=== PATIENT | female | born 1935 | race Caucasian/White ===

== ENCOUNTER 2017-04-27 07:09 | Day surgery (SDC) | payer MEDICARE, BC ==
[2017-04-27] MEDS ORDERED: DEXAMETHASONE PRESERVATIVE FREE 10MG/ML VIAL IV ONE (13:38)
[2017-04-27] MEDS ORDERED: BUPIVACAINE 0.5% W/EPI MPF 30 ML VIAL IVP ONE (13:38)
[2017-04-27] MEDS ORDERED: LIDOCAINE 1% W/EPI 1:200,000 MPF 30ML SQ ONE (13:38)
[2017-04-27] MEDS ORDERED: PROPOFOL 10 MG/ML VIAL IV ONE (14:00)
[2017-04-27] MEDS ORDERED: FENTANYL PF 100MCG/2ML VIAL IV ONE (14:00)
[2017-04-27] MEDS ORDERED: *PACU ONLY* KETAMINE HCL 10 MG/ML (20ML) VIAL IV ONE (14:00)
[2017-04-27] MEDS ORDERED: LIDOCAINE 2% MDV (20MG/ML) 20ML VIAL IV ONE (14:00)
--- NOTE | 2017-04-27 15:03 | Operative Note - Ferro ---
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 OPERATION: RADIOFREQUENCY RHIZOTOMY, BILATERAL LUMBAR FACETS 4-5 AND 5-1. SURGEON: CLIFF PEPE D.O. ANESTHESIA: LOCAL SEDATION. ANESTHESIA PROVIDER: ASHA CARRION CRNA. INDICATION: This patient presents with primary back pain. Examination shows tenderness of the lumbar spine. Range of motion does cause pain in the low back with extension. Diagnostics show a subluxation at L4-5 with diffuse disc abnormalities and multiple levels of spondylosis. A facet series 2-3 to 5-1 resulted in 75-90% pain control. Due to the failure of therapy and success of facet series, the patient presents for rhizotomy. Insurance guidelines for this patient limit her number of levels and bilateral technique to 4-5 and 5-1 only bilateral. PROCEDURE: Intravenous line, vital sign monitoring, IV sedation. Prepped and draped in sterile technique. Under imaging, facets at 4-5 and 5-1 were identified and marked bilaterally. Skin infiltrated. A 20-gauge rhizotomy cannula positioned. Stimulation trials conducted. Rhizotomy burn performed. Local with anti-inflammatory in the sites. Topical antibiotic and sterile dressing was applied. We will monitor and evaluate. cc: Consuelo Jaime JOB NUMBER: [id number] MTDD
== END 2017-04-27 09:45 | disposition home or self-care (01) ==
LOC: SUR 07:09
PROVIDERS: ATTEND Pain Medicine Interventional Pain Medicine
DX: M47.816 Spondylosis without myelopathy or radiculopathy, lumbar region (principal); J44.9 Chronic obstructive pulmonary disease, unspecified; I48.2 Chronic atrial fibrillation; Z79.01 Long term (current) use of anticoagulants; Z95.1 Presence of aortocoronary bypass graft; E78.00 Pure hypercholesterolemia, unspecified; I10 Essential (primary) hypertension
CPT/HCPCS: 64635; 64636; 01936; J1100; J3010

== ENCOUNTER 2017-07-30 11:50 | Emergency (ER) | payer MEDICARE, BC ==
[2017-07-30] MEDS ORDERED: IPRATROPIUM/ALBUTEROL (0.5MG/3MG) NEB INH ONE (12:06)
--- NOTE | 2017-07-30 12:06 | Emergency Department Record ---
History of Present Illness - General Chief Complaint: Shortness of breath Stated Complaint: TERRA Time Seen by Provider: 07/30/17 11:51 Source: Patient Mode of Arrival: Wheelchair Limitations: No limitations - History of Present Illness Initial Comments: 82 yo female presents to ED for evaluation of difficulty in breathing that began earlier this morning around 3:00. Patient denies recent illness, fevers, chills, or cough symptoms, but does report history of COPD and CHF. Patient denies wheezing symptoms. Patient also reports mild lower extremity edema symptoms. Patient denies any recent change in medications. MD Complaint: Shortness of breath Onset/Timin -: Hour(s) Severity: Moderate Consistency: Constant Improves With: Oxygen, Rest Worsens With: Exertion Known History Of: Congestive heart failure, COPD Associated Symptoms: Denies other symptoms - Related Data Home Oxygen Therapy: No Home Medications Medication Instructions Recorded Confirmed Last Taken B1/B2/Niacin/B12/Protease 1 each PO DAILY 07/30/17 07/30/17 07/29/17 [B-Complex with B-12 Tablet] Calcium Carbonate/Vitamin D3 1 each PO DAILY 07/30/17 07/30/17 07/29/17 [Calcium 600 + Vit D Tablet] Multivitamin [Multi-Vitamin Daily] 1 each PO DAILY 07/30/17 07/30/17 07/29/17 Multivitamin with Minerals [Hair, 1 each PO DAILY 07/30/17 07/30/17 07/29/17 Skin & Nails] Allergies Allergy/AdvReac Type Severity Reaction Status Date / Time hydralazine HCl Allergy Severe DIFFICULTY Verified 07/30/17 12:04 [From Apresoline] BREATHING Penicillins Allergy Severe SWELLING Verified 07/30/17 12:04 OF THE TONGUE aquagel bandages Allergy Severe BLISTERS Uncoded 08/25/16 11:28 metoprolol succinate AdvReac Unknown PT UNSURE Uncoded 08/25/16 11:28 OF REACTION Review of Systems Constitutional: Denies: Chills, Fever, Malaise, Night sweats Eyes: Denies: Eye discharge, Eye pain ENT: Denies: Congestion, Ear pain, Epistaxis Respiratory: Reports: Dyspnea. Denies: Cough Cardiovascular: Reports: Dyspnea on exertion, Edema. Denies: Chest pain Endocrine: Denies: Fatigue, Heat or cold intolerance Gastrointestinal: Denies: Abdominal pain, Nausea, Vomiting Genitourinary: Denies: Incontinence, Retention Musculoskeletal: Denies: Arthralgia, Back pain, Gout, Joint swelling Skin: Denies: Bruising, Change in color Neurological: Denies: Abnormal gait, Confusion, Headache, Seizure Psychiatric: Denies: Anxiety Hematological/Lymphatic: Denies: Anemia, Blood Clots Past Medical History - SOCIAL HISTORY Smoking Status: Former smoker - RESPIRATORY Hx Respiratory Disorders: Yes Hx COPD: Yes (mild emphysema) - CARDIOVASCULAR Hx Cardio Disorders: Yes Hx Abnormal EKG: Yes Hx Cardiac Cath: Yes Hx Chest Pain: Yes (none recently) Hx CHF: Yes Hx Edema: Yes (left leg-non pitting) Hx Hypertension: Yes (meds good control) Hx Irregular Heartbeat: Yes (AFIB) Hx Vascular Disease: Yes (has brain aneurysm-Dr monitoring it) Hx Coronary Artery Bypass Graft: Yes Comment:: history bypass; see cardiology yearly D'Haem, hyperlipidemia - NEURO Hx Neuro Disorders: Yes Hx Dizziness: Yes (only lightheadedness) Hx TIA: Yes (times 4) Hx of Neuromuscular Disease: Yes (on Lyrica for fibromyalgia) Comment:: balance issues; uses walker; or cane - GI Hx GI Disorders: No - Hx Genitourinary Disorders: Yes Hx Bladder Problem: Yes (sometimes leakages-wears pad) - ENDOCRINE Hx Endocrine Disorders: No Hx Diabetes: No Hx Thyroid Disease: No - MUSCULOSKELETAL Hx Musculoskeletal Disorders: Yes Hx Arthritis: Yes Hx Fibromyalgia: Yes - PSYCH Hx Psych Problems: Yes Hx Anxiety: Yes Hx Depression: Yes - HEMATOLOGY/ONCOLOGY Hx Hematology/Oncology Disorders: Yes Hx Clotting Problems: Yes (on Eliquis for A-fib) Family Medical History Hx Heart Disease: Father, Mother, Brother/Sister Hx HTN: Father, Brother/Sister Physical Exam - General General Appearance: Alert, Oriented x3, Cooperative, Moderate distress Limitations: No limitations - Head Head exam: Atraumatic, Normocephalic, Normal inspection Head exam detail: negative: Abrasion, Contusion, Milian's sign, General tenderness, Hematoma, Laceration - Eye Eye exam: Normal appearance. negative: Conjunctival injection, Periorbital swelling, Periorbital tenderness, Scleral icterus - ENT Ear exam: negative: Auricular hematoma, Auricular trauma Nasal Exam: negative: Active bleeding, Discharge, Dried blood, Foreign body Mouth exam: negative: Drooling, Laceration, Muffled voice, Tongue elevation - Neck Neck exam: Normal inspection. negative: Meningismus, Tenderness - Respiratory Respiratory exam: Decreased breath sounds, Respiratory distress. negative: Rhonchi, Stridor - Cardiovascular Cardiovascular Exam: Regular rate, Normal rhythm, Normal heart sounds - GI/Abdominal GI/Abdominal exam: Soft. negative: Rebound, Rigid, Tenderness - Rectal Rectal exam: Deferred - exam: Deferred - Extremities Extremities exam: Pedal edema (trace edema bilaterally). negative: Calf tenderness - Back Back exam: Denies: CVA tenderness (R), CVA tenderness (L) - Neurological Neurological exam: Alert, Normal gait, Oriented X3 - Psychiatric Psychiatric exam: Normal affect, Normal mood - Skin Skin exam: Normal color. negative: Abrasion Type of lesion: negative: abrasion Course - Reevaluation(s) Reevaluation #1: 07/30/17 12:05 EKG: NSR 65 LAD, IVCD No acute ST-T wave changes are present Reevaluation #2: 07/30/17 12:52 Labs reviewed, BNP 5867 (previous 341). Labs are otherwise grossly unremarkable for an acute process. CXR: Chronic changes, nothing acute. Patient now 94% on 2 L NC, will initiate transfer to [facility] for further evaluation. Reevaluation #3: 07/30/17 13:17 Case was discussed with Dr. Conklin, will accept patient for transfer. Medical Decision Making - Lab Data Result diagrams: 07/30/17 12:08 07/30/17 12:08 Disposition Disposition: Transfer Clinical Impression: Hypoxia Acute exacerbation of CHF (congestive heart failure) Qualifiers: Congestive heart failure type: unspecified congestive heart failure type Qualified Code(s): I50.9 - Heart failure, unspecified Disposition: Acute Care Hospital Transfer Transfer To: [facility] Reason For Transfer: CHF exacerbation Accepting Physician: Katerin Time Discussed w/Accepting Physician: 13:00 Condition: (2) Stable Forms: Patient Portal Access Time of Disposition: 13:01 Quality - Quality Measures Quality Measures: N/A - Blood Pressure Screening Does Patient Have Any of the Following: Active Dx of HTN Blood Pressure Classification: Pre-Hypertensive BP Reading Systolic Measurement: 128 Diastolic Measurement: 85 Screening for High Blood Pressure: Patient Exclusion, Hx of HTN [[id number]]
[2017-07-30 12:13] LABS: BASO % 0.2 % (0-6); EOS % 4.8 % (0-6); GRAN % 71.7 % (47-80); HEMATOCRIT 41.5 % (35.0-47.0); HEMOGLOBIN 13.3 gm/dl (11.6-16.0); LYMPH % 16.2 % (16-45); MEAN CELL VOLUME 93.9 fl (81-97); MEAN CORPUSCULAR HEMOGLOBIN 30.1 pg (27-33); MEAN PLATELET VOLUME 9.8 fl (7.4-10.4); MONO % 7.1 % (0-9); PLATELET COUNT 217 K/uL (130-400); RED BLOOD COUNT 4.42 M/uL (3.80-5.40); RED CELL DISTRIBUTION WIDTH 13.8 % (11.5-14.5); WHITE BLOOD COUNT W/O DIFF 8.2 K/uL (4.2-12.2)
[2017-07-30 12:43] LABS: ALB/GLOB RATIO 1.1 (1.1-1.8); ALBUMIN 3.6 g/dL (4.0-5.0); ALKALINE PHOSPHATASE 77 U/L (35-104); ALT/SGPT 9 U/L (<33); AST/SGOT 12 U/L (10.0-35.0); BLOOD UREA NITROGEN 20 mg/dL (8-23); CREATININE 0.9 mg/dL (0.5-0.9); EST GLOMERULAR FILTRATION RATE > 60 mL/min; GLUCOSE,RANDOM 113 mg/dL (74-109)
[2017-07-30] MEDS ORDERED: BUMETANIDE IV 0.25 MG/ML VIAL IVP ONE (13:16)
--- NOTE | 2017-07-30 14:44 | RADIOLOGY REPORT ---
EXAM: CHEST 2 VIEWS HISTORY: DIFFICULTY BREATHING. TECHNIQUE: Frontal and lateral views of the chest. COMPARISON: Prior chest from 08/25/16. FINDINGS: The heart size is normal. Atheromatous change thoracic aorta. Sternotomy wires with valve replacement. Calcified granuloma right upper lobe. Osteopenia. No pneumothorax. Minimal blunting of the left costophrenic angle, unchanged, which may relate to chronic pleural thickening and/or effusion. Lungs are otherwise clear. 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 STABLE POSTSURGICAL CHANGE. OSTEOPENIA. JOB NUMBER: [id number] MTDD
== END 2017-07-30 14:05 | disposition short-term general hospital (02) ==
LOC: ER 11:50
DX: I50.9 Heart failure, unspecified (principal); R09.02 Hypoxemia; J44.9 Chronic obstructive pulmonary disease, unspecified; I10 Essential (primary) hypertension; I48.91 Unspecified atrial fibrillation; Z87.891 Personal history of nicotine dependence
CPT/HCPCS: 71020; 80053; 83880; 84484; 85025; 93005; 93010; 94640; 96374; 99285

== ENCOUNTER 2019-01-17 13:05 | Emergency (ER) | payer MEDICARE, BC ==
--- NOTE | 2019-01-17 13:16 | Emergency Department Record ---
History of Present Illness - General Chief Complaint: Ankle/Foot Injury Stated Complaint: FALL 2DAYS AGO RT ANKLE PAIN Time Seen by Provider: 01/17/19 13:15 Source: Patient Mode of Arrival: Ambulatory Limitations: No limitations - History of Present Illness Initial Comments: The patient tripped and fell 2 days ago injuring her ankles R>L. She also hit her L knee and is having mild pain there. The patient denies any head injury or LOC. She did call EMS but then refused transport. She has been ambulating on the ankles with pain. She has had chronic leg weakness which she believed caused the fall. MD Complaint: Ankle injury Onset/Timin -: Days(s) - Related Data Allergies Allergy/AdvReac Type Severity Reaction Status Date / Time hydralazine HCl Allergy Severe DIFFICULTY Verified 01/17/19 13:17 [From Apresoline] BREATHING Penicillins Allergy Severe SWELLING Verified 01/17/19 13:17 OF THE TONGUE aquagel bandages Allergy Severe BLISTERS Uncoded 01/17/19 13:17 metoprolol succinate AdvReac Unknown PT UNSURE Uncoded 01/17/19 13:17 OF REACTION Review of Systems Constitutional: Denies: Chills, Fever Eyes: Denies: Eye discharge ENT: Denies: Congestion Respiratory: Denies: Cough, Dyspnea Past Medical History - SOCIAL HISTORY Smoking Status: Former smoker - RESPIRATORY Hx Respiratory Disorders: Yes Hx COPD: Yes (mild emphysema) - CARDIOVASCULAR Hx Cardio Disorders: Yes Hx Abnormal EKG: Yes Hx Cardiac Cath: Yes Hx Chest Pain: Yes (none recently) Hx CHF: Yes Hx Edema: Yes (left leg-non pitting) Hx Hypertension: Yes (meds good control) Hx Irregular Heartbeat: Yes (AFIB) Hx Vascular Disease: Yes (has brain aneurysm-Dr monitoring it) Hx Coronary Artery Bypass Graft: Yes Comment:: history bypass; see cardiology yearly D'Haem, hyperlipidemia - NEURO Hx Neuro Disorders: Yes Hx Dizziness: Yes (only lightheadedness) Hx TIA: Yes (times 4) Hx of Neuromuscular Disease: Yes (on Lyrica for fibromyalgia) Comment:: balance issues; uses walker; or cane - GI Hx GI Disorders: No - Hx Genitourinary Disorders: Yes Hx Bladder Problem: Yes (sometimes leakages-wears pad) - ENDOCRINE Hx Endocrine Disorders: No Hx Diabetes: No Hx Thyroid Disease: No - MUSCULOSKELETAL Hx Musculoskeletal Disorders: Yes Hx Arthritis: Yes Hx Fibromyalgia: Yes - PSYCH Hx Psych Problems: Yes Hx Anxiety: Yes Hx Depression: Yes - HEMATOLOGY/ONCOLOGY Hx Hematology/Oncology Disorders: Yes Hx Clotting Problems: Yes (on Eliquis for A-fib) Family Medical History Hx Heart Disease: Father, Mother, Brother/Sister Hx HTN: Father, Brother/Sister Physical Exam - General General Appearance: Alert, Oriented x3, Cooperative, No acute distress - Head Head exam: Atraumatic, Normocephalic, Normal inspection - Eye Eye exam: Normal appearance, PERRL - Neck Neck exam: Normal inspection, Full ROM. negative: Tenderness - Respiratory Respiratory exam: Normal lung sounds bilaterally. negative: Respiratory distress - Cardiovascular Cardiovascular Exam: Regular rate, Normal rhythm, Normal heart sounds - GI/Abdominal GI/Abdominal exam: Soft, Normal bowel sounds. negative: Tenderness - Extremities Extremities exam: Tenderness (There is bilateral ankle tenderness R>L with mild R ankle swelling. There is no ligamentous laxity.), Other (There is no knee or hip tenderness and the ROM of those joints appears normal with no pain.). negative: Normal inspection, Full ROM, Joint swelling - Back Back exam: Reports: Normal inspection - Neurological Neurological exam: Alert. negative: Motor sensory deficit Course - Reevaluation(s) Reevaluation #1: I did discuss the neg xrays with the patient and the need for ice and elevation and an champ wrap on the R ankle. She is to see her PCP if not better by next week. 01/17/19 14:09 Medical Decision Making - Data Complexity MDM Data: X-Ray Ordered and/or Reviewed - Radiology Data Radiology results: Report reviewed (R and L ankles: neg for any acute changes.) Disposition Disposition: Discharge Clinical Impression: Left ankle sprain Qualifiers: Encounter type: initial encounter Involved ligament of ankle: unspecified ligament Qualified Code(s): S93.402A - Sprain of unspecified ligament of left ankle, initial encounter Right ankle sprain Qualifiers: Encounter type: initial encounter Involved ligament of ankle: unspecified ligament Qualified Code(s): S93.401A - Sprain of unspecified ligament of right ankle, initial encounter Disposition: Home, Self-Care Condition: (2) Stable Instructions: Ankle Sprain (ED) Additional Instructions: Please take your home pain medicines and keep the wrap on the R ankle. Please see your family doctor if not better in 3-5 days and return to the ER for any worsening symptoms. Forms: Patient Portal Access Time of Disposition: 14:08 Quality - Quality Measures Quality Measures: N/A - Blood Pressure Screening View Details: Yes Does Patient Have Any of the Following: No Blood Pressure Classification: Pre-Hypertensive BP Reading Systolic Measurement: 137 Diastolic Measurement: 62 Screening for High Blood Pressure: < Pre-Hypertensive BP, F/U Documented > [ G8950] Pre-Hypertensive Follow-up Interventions: Referral to alternative/primary care provider.
--- NOTE | 2019-01-19 07:34 | RADIOLOGY REPORT ---
DATE: 01/17/2019. EXAM: LEFT ANKLE. HISTORY: PAIN. TECHNIQUE: Three views of the left ankle were performed. FINDINGS: No evidence of fracture or dislocation. No lytic or blastic lesion. There is a large calcaneal spur. IMPRESSION: NEGATIVE FOR FRACTURE OR DISLOCATION. SOFT TISSUE SWELLING. Job Number: [id number] MTDD
--- NOTE | 2019-01-19 07:38 | RADIOLOGY REPORT ---
DATE: 01/17/2019. EXAM: RIGHT ANKLE. HISTORY: INJURY. TECHNIQUE: Three views of the right ankle were performed. FINDINGS: No evidence of fracture or dislocation. There is diffuse soft tissue swelling. Large calcaneal spur. IMPRESSION: 1. DIFFUSE SOFT TISSUE SWELLING. NO DEFINITIVE FRACTURE. 2. LARGE CALCANEAL SPUR. Job Number: [id number] MTDD
== END 2019-01-17 14:15 | disposition home or self-care (01) ==
LOC: ER 13:05
DX: S93.402A Sprain of unspecified ligament of left ankle, initial encounter (principal); S93.401A Sprain of unspecified ligament of right ankle, initial encounter; M25.562 Pain in left knee; W01.0XXA Fall on same level from slipping, tripping and stumbling without subsequent striking against object, initial encounter; Z87.891 Personal history of nicotine dependence; I10 Essential (primary) hypertension; I50.9 Heart failure, unspecified
CPT/HCPCS: 99283